=== PATIENT | male | born 1985 | race Caucasian/White ===

== ENCOUNTER 2019-07-25 07:29 | Emergency (ER) | payer OTHER ==
[~2019-07-25] VITALS: Ht 188 cm; Wt 81.7 kg
[~2019-07-25 07:29] MED LIST: Benadryl 50 mg50 MG PO; CLIN150 PO; HYDACE5 PO; IBUP800 PO; KETO10 PO; METPRE4DP PO; NAPR550 PO; OXYACE5T PO; PENVK500 PO; Prednisone20 MG PO; RXCLIN PO; RXCYCL10 PO; Robaxin500 MG PO; SUBOXONE 12 MG1 EACH PO
== END 2019-07-25 09:18 | disposition home or self-care (01) ==
LOC: ER 07:29
DX: S01.01XA Laceration without foreign body of scalp, initial encounter (principal); S16.1XXA Strain of muscle, fascia and tendon at neck level, initial encounter; F17.200 Nicotine dependence, unspecified, uncomplicated; W06.XXXA Fall from bed, initial encounter; Y92.149 Unspecified place in prison as the place of occurrence of the external cause
CPT/HCPCS: 70450; 72125; 99284-25

== ENCOUNTER 2019-12-25 00:55 | Emergency (ER) | payer OTHER ==
[~2019-12-25] VITALS: Ht 188 cm; Wt 74.8 kg
[2019-12-25] MEDS ORDERED: Mupirocin22 GM TOP (02:54)
[2019-12-25] MEDS ORDERED: CEPH500 PO (02:54)
[2019-12-25] MEDS ORDERED: Bactrim Ds Tab1 EACH PO (02:54)
== END 2019-12-25 03:05 | disposition home or self-care (01) ==
LOC: ER 00:55
DX: L03.211 Cellulitis of face (principal); F17.210 Nicotine dependence, cigarettes, uncomplicated
CPT/HCPCS: 99283; A9270-GY

== ENCOUNTER → 2020-07-31 | Outpatient (CLI) | payer OTHER ==
[~2020-07-31] MED LIST changes: +Bactrim Ds Tab1 EACH PO; +CEPH500 PO; +Mupirocin22 GM TOP
[2020-08-02 21:10] LABS: QUANTIFERON MITOGEN VALUE 8.77 IU/mL (.); QUANTIFERON NIL VALUE 0.23 IU/mL (.); QUANTIFERON TB1 AG VALUE 0.27 IU/mL (.); QUANTIFERON TB2 AG VALUE 0.25 IU/mL (.); QUANTIFERON-TB GOLD PLUS Negative (Negative)
[2020-08-03 01:10] LABS: HIV SCREEN 4TH GENERATION WRFX Non Reactive (Non Reactive)
== END | disposition home or self-care (01) ==
LOC: LAB EV 17:13 → LAB SHORT 17:13
PROVIDERS: Internal Medicine
DX: Z11.59 Encounter for screening for other viral diseases (principal); F11.20 Opioid dependence, uncomplicated; Z79.899 Other long term (current) drug therapy
CPT/HCPCS: 86480; 86592; 86803; 87389

== ENCOUNTER 2021-11-30 16:45 | Emergency (ER) | payer OTHER ==
[~2021-11-30] VITALS: Ht 190.5 cm; Wt 81.7 kg
[2021-11-30] MEDS ORDERED: METPHE20 PO (16:59)
[2021-11-30] MEDS ORDERED: NARCAN4 M1 (17:30)
== END 2021-11-30 18:15 | disposition home or self-care (01) ==
LOC: ER 16:45
DX: F11.20 Opioid dependence, uncomplicated (principal); F17.200 Nicotine dependence, unspecified, uncomplicated; Z79.899 Other long term (current) drug therapy
CPT/HCPCS: 99281; A9270

== ENCOUNTER 2022-11-28 19:38 | Emergency (ER) | payer OTHER ==
[~2022-11-28] VITALS: Ht 188 cm; Wt 83.9 kg
[~2022-11-28 19:38] MED LIST changes: +METPHE20 PO; +NARCAN4 M1
[2022-11-28] MEDS ORDERED: AMPDEX10CR PO (19:48)
[2022-11-28] MEDS ORDERED: METH10 (19:49)
[2022-11-28] MEDS ORDERED: PRED10 PO (22:02)
== END 2022-11-28 22:31 | disposition home or self-care (01) ==
LOC: ER 19:38
DX: L30.9 Dermatitis, unspecified (principal); F17.210 Nicotine dependence, cigarettes, uncomplicated
CPT/HCPCS: 99283; J7512

== ENCOUNTER 2025-01-05 12:15 | Emergency (ER) | payer OTHER ==
[~2025-01-05] VITALS: Ht 188 cm; Wt 92.1 kg
[~2025-01-05 12:15] MED LIST changes: +AMPDEX10CR PO; +METH10; +PRED10 PO
[2025-01-05 13:36] VITALS: BP 143/96
[2025-01-05] MEDS ORDERED: Methadone HCL 10 MG TAB PO ONE (13:55)
== END 2025-01-05 14:25 | disposition home or self-care (01) ==
LOC: ER 12:15
DX: Z76.0 Encounter for issue of repeat prescription (principal); F11.11 Opioid abuse, in remission; F17.200 Nicotine dependence, unspecified, uncomplicated; Z79.899 Other long term (current) drug therapy
CPT/HCPCS: 99281; A9270

== ENCOUNTER 2025-03-01 13:47 | Emergency (ER) | payer OTHER ==
[~2025-03-01] VITALS: Ht 188 cm; Wt 89.8 kg
[2025-03-01 14:04] VITALS: BP 162/95
[2025-03-01] MEDS ORDERED: Methadone HCL 10 MG TAB PO ONE (14:25)
== END 2025-03-01 14:38 | disposition home or self-care (01) ==
LOC: ER 13:47
DX: Z76.89 Persons encountering health services in other specified circumstances (principal); F11.90 Opioid use, unspecified, uncomplicated; F17.210 Nicotine dependence, cigarettes, uncomplicated; Z79.899 Other long term (current) drug therapy
CPT/HCPCS: 99281; A9270

== ENCOUNTER 2025-07-02 18:32 | Emergency (ER) | payer OTHER ==
[~2025-07-02] VITALS: Ht 188 cm; Wt 90.7 kg
[2025-07-02 18:38] VITALS: BP 155/98
== END 2025-07-02 19:44 | disposition home or self-care (01) ==
LOC: ER 18:32
DX: F11.90 Opioid use, unspecified, uncomplicated (principal); F17.210 Nicotine dependence, cigarettes, uncomplicated; Z79.899 Other long term (current) drug therapy; Z59.89 Other problems related to housing and economic circumstances
CPT/HCPCS: 99281; A9270

== ENCOUNTER 2025-07-08 16:00 | Emergency (ER) | payer OTHER ==
[~2025-07-08] VITALS: Ht 188 cm; Wt 90.3 kg
[2025-07-08 16:36] VITALS: BP 119/88
== END 2025-07-08 18:30 | disposition home or self-care (01) ==
LOC: ER 16:00
DX: F11.90 Opioid use, unspecified, uncomplicated (principal); Z76.0 Encounter for issue of repeat prescription; Z79.899 Other long term (current) drug therapy; F17.200 Nicotine dependence, unspecified, uncomplicated
CPT/HCPCS: 99281; A9270

== ENCOUNTER 2025-08-06 14:49 | Emergency (ER) | payer OTHER ==
[~2025-08-06] VITALS: Ht 188 cm; Wt 89.8 kg
[2025-08-06 15:58] VITALS: BP 128/82
== END 2025-08-06 16:04 | disposition home or self-care (01) ==
LOC: ER 14:49
DX: F11.90 Opioid use, unspecified, uncomplicated (principal); Z76.0 Encounter for issue of repeat prescription; F17.210 Nicotine dependence, cigarettes, uncomplicated; Z79.899 Other long term (current) drug therapy
CPT/HCPCS: 99281; A9270